=== PATIENT | male | born 1985 | race Caucasian/White ===

== ENCOUNTER 2017-07-02 11:09 | Inpatient (IN) | payer OTHER ==
[2017-07-02 11:50] LABS: Hematocrit 39 % (42-52); Hemoglobin 13.5 g/dl (14.0-18.0); Mean Corpuscular HGB Conc 35 g/dl (31-36); Mean Corpuscular Hemoglobin 29 pg (27-31); Mean Corpuscular Volume 84 fL (80-94); Mean Platelet Volume 8 um3 (7.4-10.4); Red Blood Count 4.61 10^6/ul (4.0-5.4); Red Cell Distribution Width 15 % (10.5-15); White Blood Count 3.4 10^3/ul (3.5-10.8)
[2017-07-02 11:52] LABS: Add Diff/Slide Review? Slide Review Added; Comments Flag Yes
[2017-07-02 11:54] LABS: Urine Bilirubin Negative (Negative); Urine Glucose 1+(50 mg/dL) (Negative); Urine Nitrite Negative (Negative)
[2017-07-02 12:07] LABS: ALT 45 U/L (7-52); AST 36 U/L (13-39); Albumin 4.2 g/dL (3.2-5.2); Alkaline Phosphatase 54 U/L (34-104); Anion Gap 7 mmol/L (2-11); Blood Urea Nitrogen 12 mg/dL (6-24); CO2 Carbon Dioxide 26 mmol/L (22-32); Chloride 101 mmol/L (101-111); EGFR Non-African American 112.8 (>60); Globulin 2.4 g/dL (2-4); Glucose 174 mg/dL (70-100); Potassium 3.9 mmol/L (3.5-5.0); Sodium 134 mmol/L (133-145); Total Protein 6.6 g/dL (6.4-8.9)
[2017-07-02 12:09] LABS: Benzodiazepine Urine Screen None Detected (None Detect)
[2017-07-02 12:13] LABS: Acetaminophen < 15 mcg/mL; Alcohol < 10 mg/dL (<10); Salicylate < 2.50 mg/dL (<30)
[2017-07-02 12:27] LABS: TSH (Thyroid Stimulating Horm) 9.39 mcIU/mL (0.34-5.60)
[2017-07-02] MEDS ORDERED: hydrOXYzine HCL TAB* 50 MG PO PRN (16:35)
[2017-07-02] MEDS: Buprenorphine/Naloxone 8-2 MG SL TAB* 1 TAB PO SCH (20:09)
[2017-07-02] MEDS: Naproxen TAB* 250 MG PO SCH (20:10)
[2017-07-02] MEDS ORDERED: Mirtazapine TAB* 15 MG PO SCH (21:00)
[2017-07-02] MEDS ORDERED: OLANzapine TAB* 10 MG PO SCH (21:00)
[2017-07-02] MEDS ORDERED: Nicotine PATCH 14 MG/24 HR* PATCH TRANSDERM SCH (21:00)
[2017-07-02] MEDS: buPROPion TAB* 75 MG PO SCH (21:13)
[2017-07-03] MEDS ORDERED: Nicotine Patch Removal NOTE PATCH OFF SCH (09:00)
[2017-07-03] MEDS: buPROPion TAB* 75 MG PO SCH (09:25)
[2017-07-03] MEDS: Naproxen TAB* 250 MG PO SCH ×2 (09:25→21:02)
[2017-07-03] MEDS: Buprenorphine/Naloxone 8-2 MG SL TAB* 1 TAB PO SCH (09:26)
--- NOTE | 2017-07-03 11:35 | ADMNOTE ---
Identification - Identify Employment Status: Unemployed Hx Psychiatric Hospitalization: Yes Prior Psychiatric Diagnosis: Persistent Depressive Disorder, Major Depressive Disorder recurrent Arrived to Hospital Via: transferred by ambulance from [facility] History - Objective HPI: HISTORY AND PHYSICAL Reason for Admission: Plan - Treatment Plan Medications: Current Medications Acetaminophen (Tylenol Tab*) 650 mg PO Q4H PRN PRN Reason: for pain; or Temp >101 F Buprenorphine/Naloxone (Suboxone 8-2 Mg Sl Tab*) 1.5 tab.sl PO DAILY [facility] Last Admin: 07/03/17 09:26 Dose: 1.5 tab.sl Bupropion HCl (Wellbutrin Tab*) 75 mg PO BID [facility] Last Admin: 07/03/17 09:25 Dose: 75 mg Device (Nicotine Mouth Piece*) 1 each INH .USE WITH CARTRIDGE PRN PRN Reason: CRAVINGS Hydroxyzine HCl (Atarax Tab*) 50 mg PO Q6H PRN PRN Reason: ANXIETY Mirtazapine (Remeron Tab*) 30 mg PO BEDTIME [facility] Last Admin: 07/02/17 20:11 Dose: 30 mg Naproxen (Naprosyn Tab*) 500 mg PO BID [facility] Last Admin: 07/03/17 09:25 Dose: 500 mg Nicotine (Nicotine Inhaler*) 10 mg INH Q2H PRN PRN Reason: CRAVINGS Nicotine (Nicotine Patch 14 Mg/24 Hr*) 1 patch TRANSDERM BEDTIME [facility] Last Admin: 07/02/17 20:12 Dose: 1 patch Nicotine Polacrilex (Nicotine Gum*) 2 mg PO Q2H PRN PRN Reason: CRAVINGS Olanzapine (Zyprexa Tab*) 10 mg PO BEDTIME [facility] Last Admin: 07/02/17 20:59 Dose: 10 mg Pharmacy Profile Note (Nicotine Patch Removal Note*) 1 note PATCH OFF 0900 [facility] Last Admin: 07/03/17 09:27 Dose: 1 note
[2017-07-03] MEDS: Nicotine Patch Removal NOTE PATCH OFF SCH (21:03)
[2017-07-03] MEDS: Mirtazapine TAB* 15 MG PO SCH (21:03)
[2017-07-03] MEDS: CMCS: Brexpiprazole (NF) 0.5 MG TAB PO SCH (21:22)
[2017-07-04] MEDS: Buprenorphine/Naloxone 8-2 MG SL TAB* 1 TAB PO SCH (08:13)
[2017-07-04] MEDS: Naproxen TAB* 250 MG PO SCH ×2 (08:13→20:20)
[2017-07-04] MEDS: Nicotine PATCH 14 MG/24 HR* PATCH TRANSDERM SCH (08:13)
[2017-07-04] MEDS: BuPROPion XL* 300 MG TAB.XL PO SCH (08:14)
[2017-07-04] MEDS ORDERED: BuPROPion XL* 150 MG TAB.XL PO SCH (09:00)
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
[2017-07-04] MEDS: Nicotine Inhaler* 10 MG AMP INH PRN ×3 (12:54→20:22)
[2017-07-04] MEDS: Mouth Piece, Nicotine* 1 EACH CARTRIDGE INH PRN (12:54)
[2017-07-04] MEDS: FLUoxetine CAP* 20 MG PO SCH (13:05)
[2017-07-04] MEDS: CMCS: Brexpiprazole (NF) 0.5 MG TAB PO SCH (20:18)
[2017-07-04] MEDS: Mirtazapine TAB* 15 MG PO SCH (20:20)
[2017-07-04] MEDS: Nicotine Patch Removal NOTE PATCH OFF SCH (20:21)
[2017-07-05] MEDS: Naproxen TAB* 250 MG PO SCH ×2 (08:18→20:17)
[2017-07-05] MEDS: Buprenorphine/Naloxone 8-2 MG SL TAB* 1 TAB PO SCH (08:19)
[2017-07-05] MEDS: BuPROPion XL* 300 MG TAB.XL PO SCH (08:19)
[2017-07-05] MEDS: Nicotine PATCH 14 MG/24 HR* PATCH TRANSDERM SCH (08:20)
[2017-07-05] MEDS: Nicotine Inhaler* 10 MG AMP INH PRN ×4 (08:21→20:20)
[2017-07-05] MEDS: FLUoxetine CAP* 20 MG PO SCH (08:23)
[2017-07-05] MEDS: Gabapentin CAP(*) 300 MG PO PRN ×3 (08:45→19:08)
[2017-07-05] MEDS ORDERED: Modafinil TAB* 100 MG PO SCH (09:00)
[2017-07-05] MEDS: Acetaminophen TAB* 325 MG PO PRN ×3 (12:09→21:52)
--- NOTE | 2017-07-05 13:14 | PN ---
MHU: Group Therapy Note - Service Type Service Type: [id number] Group Psychotherapy - Cognitive Behavioral Group Therapy ( CBT):Patient was attentive and participatory in CBT programming this morning, and remained in good behavioral control. Patient expressed positive insights regarding relevant treatment interventions and goals.
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
[2017-07-05] MEDS: Nicotine GUM* 2 MG PO PRN (16:33)
--- NOTE | 2017-07-05 16:37 | PN ---
MHU: Group Therapy Note - Service Type Service Type: [id number] Group Psychotherapy - Medication Education Group: Patient was attentive and participatory in group, and remained in good behavioral control. Patient expressed positive insights regarding relevant treatment interventions. Patient stated understanding of material discussed and had appropriate questions.
[2017-07-05] MEDS: CMCS: Brexpiprazole (NF) 0.5 MG TAB PO SCH (20:16)
[2017-07-05] MEDS: Mirtazapine TAB* 15 MG PO SCH (20:17)
[2017-07-05] MEDS: Nicotine Patch Removal NOTE PATCH OFF SCH (20:18)
[2017-07-05] MEDS ORDERED: Mirtazapine TAB* 15 MG PO SCH (21:00)
[2017-07-06] MEDS: Gabapentin CAP(*) 300 MG PO PRN ×4 (00:30→19:56)
[2017-07-06] MEDS: Nicotine PATCH 14 MG/24 HR* PATCH TRANSDERM SCH (08:07)
[2017-07-06] MEDS: Buprenorphine/Naloxone 8-2 MG SL TAB* 1 TAB PO SCH (08:09)
[2017-07-06] MEDS: BuPROPion XL* 300 MG TAB.XL PO SCH (08:10)
[2017-07-06] MEDS: Nicotine Inhaler* 10 MG AMP INH PRN ×4 (08:10→22:44)
[2017-07-06] MEDS: FLUoxetine CAP* 20 MG PO SCH (08:10)
[2017-07-06] MEDS: Naproxen TAB* 250 MG PO SCH ×2 (08:11→20:28)
[2017-07-06 08:20] LABS: Hematocrit 40 % (42-52); Hemoglobin 13.9 g/dl (14.0-18.0); Mean Corpuscular HGB Conc 34 g/dl (31-36); Mean Corpuscular Hemoglobin 29 pg (27-31); Mean Corpuscular Volume 86 fL (80-94); Mean Platelet Volume 8 um3 (7.4-10.4); Red Blood Count 4.72 10^6/ul (4.0-5.4); Red Cell Distribution Width 15 % (10.5-15)
[2017-07-06 08:28] LABS: Comments Flag Yes; White Blood Count 3.4 10^3/ul (3.5-10.8)
[2017-07-06 08:37] LABS: HDL Cholesterol 33.1 mg/dL
[2017-07-06 08:47] LABS: T4 5.01 mcg/mL (6.09-12.23)
[2017-07-06 09:02] LABS: Folate 19.93 ng/mL (>3.99)
--- NOTE | 2017-07-06 11:49 | PN ---
MHU: Group Therapy Note - Service Type Service Type: [id number] Group Psychotherapy - Cognitive Behavioral Group Therapy ( CBT):Patient was attentive and participatory in CBT programming this morning, and remained in good behavioral control. Patient expressed positive insights regarding relevant treatment interventions and goals.
--- NOTE | 2017-07-06 12:37 | ED ---
Luz Cedeño Thomas, scribed for Bao Fernandes MD on 07/02/17 at 1212 . Psychiatric Complaint - HPI Summary HPI Summary: The patient is a 32 y/o M with complaints of severe anxiety and depression. He denies SI. The patient does not have any other complaints at this time. He is a patient at [email or web address]. - History Of Current Complaint Chief Complaint: EDAltMentalStatus Time Seen by Provider: 07/02/17 11:16 Hx Obtained From: Patient Onset/Duration: Still Present Timing: Constant Severity Currently: Severe Character: Depressed, Anxious Aggravating Factor(s): Other - Unknown Alleviating Factor(s): Other - Unknown Has Suicidal: Denies: Thoughts PMH/Surg Hx/FS Hx/Imm Hx Previously Healthy: Yes Endocrine/Hematology History: Denies: Hx Diabetes Cardiovascular History: Denies: Hx Hypertension Infectious Disease History: No Infectious Disease History: Denies: Traveled Outside the [place] in Last 30 Days - Family History Known Family History: Negative: Hypertension, Diabetes - Social History Alcohol Use: None Hx Substance Use: No Substance Use Type: Reports: None Hx Tobacco Use: No Smoking Status (MU): Never Smoked Tobacco Review of Systems Negative: Fever Positive: Anxious, Depressed All Other Systems Reviewed And Are Negative: Yes Physical Exam - Summary Physical Exam Summary: VITAL SIGNS: Reviewed. GENERAL: Patient is a well-developed and nourished male who is lying comfortable in the stretcher. Patient is not in any acute respiratory distress. HEAD AND FACE: No signs of trauma. No ecchymosis, hematomas or skull depressions. No sinus tenderness. EYES: PERRLA, EOMI x 2, No injected conjunctiva, no nystagmus. EARS: Hearing grossly intact. Ear canals and tympanic membranes are within normal limits. MOUTH: Oropharynx within normal limits. NECK: Supple, trachea is midline, no adenopathy, no JVD, no carotid bruit, no c- spine tenderness, neck with full ROM. CHEST: Symmetric, no tenderness at palpation LUNGS: Clear to auscultation bilaterally. No wheezing or crackles. CVS: Regular rate and rhythm, S1 and S2 present, no murmurs or gallops appreciated. ABDOMEN: Soft, non-tender. No signs of distention. No rebound no guarding, and no masses palpated. Bowel sounds are normal. EXTREMITIES: FROM in all major joints, no edema, no cyanosis or clubbing. NEURO: Alert and oriented x 3. No acute neurological deficits. Speech is normal and follows commands. SKIN: Dry and warm. PSYCH: Depressed, quiet, and denies any suicidal thoughts or plan. No homicidal thoughts or plan. No signs of psychosis or pressure speech. No tangential speech. PSYCH: Depressed and quiet. He has suicidal ideation. No homicidal thoughts or plan. No signs of psychosis or pressure speech. No tangential speech. Triage Information Reviewed: Yes Vital Signs On Initial Exam: Initial Vitals Temp Pulse Resp BP Pulse Ox 98.7 F 80 16 122/65 93 07/02/17 11:53 07/02/17 11:53 07/02/17 11:53 07/02/17 11:53 07/02/17 11:53 Vital Signs Reviewed: Yes Diagnostics - Vital Signs Vital Signs Temp Pulse Resp BP Pulse Ox 07/02/17 11:53 98.7 F 80 16 122/65 93 - Laboratory Lab Results: Lab Results 07/02/17 07/02/17 07/02/17 Range/Units 11:36 11:36 11:36 WBC (3.5-10.8) 10^3/ul RBC (4.0-5.4) 10^6/ul Hgb (14.0-18.0) g/dl Hct (42-52) % MCV (80-94) fL MCH (27-31) pg MCHC (31-36) g/dl RDW (10.5-15) % Plt Count (150-450) 10^3/ul MPV (7.4-10.4) um3 Neut % (Auto) (38-83) % Lymph % (Auto) (25-47) % [place] % (Auto) (1-9) % Eos % (Auto) (0-6) % Baso % (Auto) (0-2) % Absolute Neuts (auto) (1.5-7.7) 10^3/ul Absolute Lymphs (auto) (1.0-4.8) 10^3/ul Absolute Monos (auto) (0-0.8) 10^3/ul Absolute Eos (auto) (0-0.6) 10^3/ul Absolute Basos (auto) (0-0.2) 10^3/ul Absolute Nucleated RBC 10^3/ul Nucleated RBC % Sodium 134 (133-145) mmol/L Potassium 3.9 (3.5-5.0) mmol/L Chloride 101 (101-111) mmol/L Carbon Dioxide 26 (22-32) mmol/L Anion Gap 7 (2-11) mmol/L BUN 12 (6-24) mg/dL Creatinine 0.80 (0.67-1.17) mg/dL Est GFR ( Amer) 145.0 (>60) Est GFR (Non-Af Amer) 112.8 (>60) BUN/Creatinine Ratio 15.0 (8-20) Glucose 174 H (70-100) mg/dL Calcium 9.0 (8.6-10.3) mg/dL Total Bilirubin 0.40 (0.2-1.0) mg/dL AST 36 (13-39) U/L ALT 45 (7-52) U/L Alkaline Phosphatase 54 (34-104) U/L Total Protein 6.6 (6.4-8.9) g/dL Albumin 4.2 (3.2-5.2) g/dL Globulin 2.4 (2-4) g/dL Albumin/Globulin Ratio 1.8 (1-3) TSH Pending Urine Color Yellow Urine Appearance Clear Urine pH 5.0 (5-9) Ur Specific [place] 1.020 (1.010-1.030) Urine Protein Negative (Negative) Urine Ketones Negative (Negative) Urine Blood Negative (Negative) Urine Nitrate Negative (Negative) Urine Bilirubin Negative (Negative) Urine Urobilinogen Negative (Negative) Ur Leukocyte Esterase Negative (Negative) Urine Glucose 1+(50 mg/dl) H (Negative) Salicylates Pending Urine Opiates Screen None detected (None Detect) Acetaminophen Pending Ur Barbiturates Screen None detected (None Detect) Ur Phencyclidine Scrn None detected (None Detect) Ur Amphetamines Screen None detected (None Detect) U Benzodiazepines Scrn None detected (None Detect) Urine Cocaine Screen None detected (None Detect) U Cannabinoids Screen None detected (None Detect) Serum Alcohol Pending 07/02/17 Range/Units 11:36 WBC 3.4 L (3.5-10.8) 10^3/ul RBC 4.61 (4.0-5.4) 10^6/ul Hgb 13.5 L (14.0-18.0) g/dl Hct 39 L (42-52) % MCV 84 (80-94) fL MCH 29 (27-31) pg MCHC 35 (31-36) g/dl RDW 15 (10.5-15) % Plt Count 184 (150-450) 10^3/ul MPV 8 (7.4-10.4) um3 Neut % (Auto) 51.6 (38-83) % Lymph % (Auto) 33.8 (25-47) % [place] % (Auto) 10.9 H (1-9) % Eos % (Auto) 2.4 (0-6) % Baso % (Auto) 1.3 (0-2) % Absolute Neuts (auto) 1.7 (1.5-7.7) 10^3/ul Absolute Lymphs (auto) 1.1 (1.0-4.8) 10^3/ul Absolute Monos (auto) 0.4 (0-0.8) 10^3/ul Absolute Eos (auto) 0.1 (0-0.6) 10^3/ul Absolute Basos (auto) 0 (0-0.2) 10^3/ul Absolute Nucleated RBC 0.01 10^3/ul Nucleated RBC % 0.2 Sodium (133-145) mmol/L Potassium (3.5-5.0) mmol/L Chloride (101-111) mmol/L Carbon Dioxide (22-32) mmol/L Anion Gap (2-11) mmol/L BUN (6-24) mg/dL Creatinine (0.67-1.17) mg/dL Est GFR ( Amer) (>60) Est GFR (Non-Af Amer) (>60) BUN/Creatinine Ratio (8-20) Glucose (70-100) mg/dL Calcium (8.6-10.3) mg/dL Total Bilirubin (0.2-1.0) mg/dL AST (13-39) U/L ALT (7-52) U/L Alkaline Phosphatase (34-104) U/L Total Protein (6.4-8.9) g/dL Albumin (3.2-5.2) g/dL Globulin (2-4) g/dL Albumin/Globulin Ratio (1-3) TSH Urine Color Urine Appearance Urine pH (5-9) Ur Specific [place] (1.010-1.030) Urine Protein (Negative) Urine Ketones (Negative) Urine Blood (Negative) Urine Nitrate (Negative) Urine Bilirubin (Negative) Urine Urobilinogen (Negative) Ur Leukocyte Esterase (Negative) Urine Glucose (Negative) Salicylates Urine Opiates Screen (None Detect) Acetaminophen Ur Barbiturates Screen (None Detect) Ur Phencyclidine Scrn (None Detect) Ur Amphetamines Screen (None Detect) U Benzodiazepines Scrn (None Detect) Urine Cocaine Screen (None Detect) U Cannabinoids Screen (None Detect) Serum Alcohol Result Diagrams: 07/02/17 11:36 07/02/17 11:36 Lab Statement: Any lab studies that have been ordered have been reviewed, and results considered in the medical decision making process. Course/Dx - Course Assessment/Plan: The patient is a 32 y/o M with complaints of severe anxiety and depression. He denies SI. The patient does not have any other complaints at this time. He is a patient at [email or web address]. The patient is medically cleared. He is awaiting mental health evaluation. After mental health evaluation and consultation by Dr. Weaver, the patient will be involuntarily admitted. The patient is diagnosed with mood disorder. - Differential Dx/Clinical Impression Provider Diagnosis: Mood disorder - Physician Notifications Discussed Care Of Patient With: Theo Weaver Time Discussed With Above Provider: 17:06 Instructed by Provider To: Other - Dr. Weaver, psychiatry, recommended involuntary admission. Discharge - Discharge Plan Condition: Stable Disposition: ADMITTED TO [facility] Referrals: No Primary Care Phys,NOPCP [Primary Care Provider] - The documentation as recorded by the Luz avilez Thomas accurately reflects the service I personally performed and the decisions made by me, Bao Fernandes MD.
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
[2017-07-06 15:37] LABS: Free T4 0.62 ng/dL (0.61-1.12)
[2017-07-06] MEDS: CMCS: Brexpiprazole (NF) 0.5 MG TAB PO SCH (20:27)
[2017-07-06] MEDS: Nicotine Patch Removal NOTE PATCH OFF SCH (20:28)
[2017-07-06] MEDS: traZODone TAB* 50 MG TAB PO PRN (20:30)
[2017-07-07] MEDS ORDERED: Levothyroxine TAB* 75 MCG TAB PO SCH (06:00)
[2017-07-07] MEDS: Nicotine PATCH 14 MG/24 HR* PATCH TRANSDERM SCH (07:49)
[2017-07-07] MEDS: Buprenorphine/Naloxone 8-2 MG SL TAB* 1 TAB PO SCH (07:49)
[2017-07-07] MEDS: Nicotine Inhaler* 10 MG AMP INH PRN ×7 (07:50→22:34)
[2017-07-07] MEDS: Naproxen TAB* 250 MG PO SCH ×2 (07:50→20:26)
[2017-07-07] MEDS: Gabapentin CAP(*) 300 MG PO PRN ×3 (07:50→17:51)
[2017-07-07] MEDS: FLUoxetine CAP* 20 MG PO SCH (07:53)
[2017-07-07] MEDS: BuPROPion XL* 300 MG TAB.XL PO SCH (08:49)
--- NOTE | 2017-07-07 16:54 | CONS ---
CONSULTATION REPORT: DATE OF CONSULT: 07/07/17 ATTENDING PSYCHIATRIST: Andre Alaniz DO CONSULTING PHYSICIAN: Randall Espinoza MD REASON FOR CONSULT: Elevated TSH, elevated A1C. HISTORY OF PRESENT ILLNESS: Fredy Nixon is a 32-year-old male, history of opioid dependence, usually used intranasally, but one instance of injected heroin use, recent methamphetamine use and incarceration for manufacture of methamphetamine, recently released to [facility], but was not participating in group therapy there, had a depressed affect. He was involuntarily admitted for reported suicidal ideation, though currently denies current suicidality. Medications are being adjusted by Dr. Andre Alaniz. His Vistaril was discontinued. He was started on gabapentin for anxiety. Continued on Suboxone , continued on Remeron and Wellbutrin and modafinil was added. Restarted Rexulti. The patient attest to recent significant weight gain, initially had been 220, then dropped down to 197 in the setting of his methadone use prior to his incarceration and since September of 2016, he has gained approximately 50 to 55 pounds. His labs were significant for elevated TSH 9.39, free T4 within normal limits of 0.62, and total T4 of 5.01, and Medicine was consulted for hypothyroidism. Also had a mildly elevated A1c of 5.7. The patient attested being very tired over the last couple of years, sleeping up to 14 hours a day. He has diffuse joint pains. He has had multiple surgeries for the same. Denies any muscle pains. The patient attested to frequent urinations, 5 to 6 times a day with nocturia 2 to 3 times a day. Denies any family history of thyroid or diabetes. PAST MEDICAL HISTORY: Opioid dependence, on Suboxone; depressive mood disorder , severe; history of multiple psychiatric hospitalizations and suicide attempts ; recent incarceration for substance abuse and methamphetamine manufacture. PAST SURGICAL HISTORY: Bilateral shoulder reconstructions, bilateral wrist surgeries for ganglion cyst, and ligament manipulation. CURRENT MEDICATIONS: Include: 1. Acetaminophen tab 650 mg p.o. q.4 hours. 2. Brexpiprazole 1 mg p.o. at bedtime. 3. Buprenorphine naloxone 1.5 tabs sublingual p.o. daily. 4. Bupropion 200 mg p.o. daily. 5. Fluoxetine 20 mg p.o. daily. 6. Gabapentin 300 mg p.o. q.4 hours p.r.n. 7. Levothyroxine 75 mcg p.o. daily (started this morning by Dr. Alaniz). 8. Naproxen 500 mg p.o. b.i.d. 9. Nicotine gum 2 mg p.o. q.2 hours p.r.n. 10. Nicotine inhaler 2 mg inhaled q.2 hours p.r.n. 11. Nicotine patch 14 mg daily. 12. Trazodone 50 mg p.o. at bedtime. ALLERGIES: Denies any drug allergies. SOCIAL HISTORY: Here for admitted [facility] and formerly resident of [place], [place]. No family in the area. Previously worked in the [employer] business in [place] after his drug rehabilitation, may be returning to [place], [place], although he is trying to get his case transferred elsewhere. Current smoker. Denies alcohol use. Currently on Suboxone and previous drug use as per HPI. FAMILY HISTORY: Maternal grandfather with diabetes. Father with hypertension, CAD, CABG. Mother without any medical issues. REVIEW OF SYSTEMS: A complete 14-point review of systems was negative except as per HPI. PHYSICAL EXAMINATION: General Appearance: No acute distress. Vital Signs: Temperature 98.2, heart rate 77, respiratory rate 16, O2 sat 98%, blood pressure 108/74. HEENT: Normocephalic, atraumatic. Pupils are equal, round, and reactive to light. Extraocular motions are intact. Oropharynx: Clear. Neck: No cervical lymphadenopathy. No goiter or other thyroid masses appreciated. Respiratory: Clear to auscultation bilaterally with no wheezing, rales, or rhonchi. Cardiovascular: Regular rate and rhythm. No murmurs, rubs, or gallops. Abdomen: Soft, nontender, nondistended. No peritoneal signs. No guarding, no rebound. No Guzman's sign. Extremities: Warm and well perfused. No peripheral edema. Skin: No lesions. No rashes. Mood: Stable appearing, non-pressured speech. Denies any suicidal ideation or homicidal ideation. Neurological: Cranial nerves II through XII intact. Moving all extremities. Sensation intact. DIAGNOSTIC STUDIES/LAB DATA: White count 3.4, hemoglobin 13.9, hematocrit 40, platelets 224. Hemoglobin A1c 5.7. Triglycerides 447, cholesterol 261, LDL 137 , HDL 33, TSH 9.39, free T4 0.62. Total T4 5.01. Thyroid peroxidase antibody 322. No imaging. ASSESSMENT AND PLAN: Fredy Nixon is a 32-year-old male with history of opioid abuse, major depressive disorder with reported recent suicidal ideations , not participating in drug treatment plan at [facility], presenting to the mental health unit for further psychiatric med titration. Seems to be stable from mood perspective. Hospitalist service consulted for hypothyroidism, perhaps consistent with potential mild hypothyroidism. I agree with plan to start Synthroid supplementation, although would reduce dose from 75 mcg per day to 50 mcg a day, representing 1.6 mcg/kg. Recheck in 6 weeks. No further imaging indicated at this time. Consult with Dr. Bowman as an outpatient if still in the area. For his empiric glucose tolerance, A1c of 5.7. Would given his 50 pound weight gain in the last year in the setting of incarceration and potential mild hypothyroidism, we will not start metformin or other oral agents at this time. Recommend diet and exercise with outpatient follow up with the primary care provider and repeat A1c testing in no sooner than 3 months. The patient does have frequent urination and some nocturia. Do not see the need to get q.a.c. q.h.s. blood sugars while he is in the psych unit. Does have elevated LDL, low HDL, some family history of cardiac disease on his father's side, his age, subsequently demographics calculate 10-year ASCVD risk and would not start saline at this time. I appreciate the consultation. Please call with any further questions. [id number]/[facility] #: [id number] DOMINGUEZ
[2017-07-07] MEDS: CMCS: Brexpiprazole (NF) 0.5 MG TAB PO SCH (20:25)
[2017-07-07] MEDS: Docusate CAP* 100 MG PO SCH (20:26)
[2017-07-07] MEDS: Nicotine Patch Removal NOTE PATCH OFF SCH (20:27)
[2017-07-07] MEDS: Magnesium Hydroxide LIQ* 30 ML UDC PO PRN (20:27)
[2017-07-07] MEDS: traZODone TAB* 50 MG TAB PO PRN (22:34)
[2017-07-08] MEDS: Levothyroxine TAB* 50 MCG TAB PO SCH (07:19)
[2017-07-08] MEDS: Buprenorphine/Naloxone 8-2 MG SL TAB* 1 TAB PO SCH (08:20)
[2017-07-08] MEDS: Docusate CAP* 100 MG PO SCH ×2 (08:21→20:10)
[2017-07-08] MEDS: Gabapentin CAP(*) 300 MG PO PRN ×4 (08:21→21:32)
[2017-07-08] MEDS: Naproxen TAB* 250 MG PO SCH ×2 (08:21→20:09)
[2017-07-08] MEDS: Nicotine PATCH 14 MG/24 HR* PATCH TRANSDERM SCH (08:22)
[2017-07-08] MEDS: BuPROPion XL* 300 MG TAB.XL PO SCH (08:22)
[2017-07-08] MEDS: FLUoxetine CAP* 20 MG PO SCH (08:23)
[2017-07-08] MEDS: Nicotine Inhaler* 10 MG AMP INH PRN ×6 (08:24→22:39)
[2017-07-08] MEDS: Nicotine GUM* 2 MG PO PRN (13:12)
[2017-07-08] MEDS: Magnesium Hydroxide LIQ* 30 ML UDC PO PRN (13:13)
[2017-07-08] MEDS: Acetaminophen TAB* 325 MG PO PRN (16:08)
[2017-07-08] MEDS: CMCS: Brexpiprazole (NF) 0.5 MG TAB PO SCH (20:09)
[2017-07-08] MEDS: Nicotine Patch Removal NOTE PATCH OFF SCH (21:34)
[2017-07-08] MEDS: traZODone TAB* 50 MG TAB PO PRN (22:40)
[2017-07-09] MEDS: Nicotine Inhaler* 10 MG AMP INH PRN ×7 (00:48→22:40)
[2017-07-09] MEDS: Levothyroxine TAB* 50 MCG TAB PO SCH (08:46)
[2017-07-09] MEDS: Docusate CAP* 100 MG PO SCH ×2 (08:46→20:06)
[2017-07-09] MEDS: BuPROPion XL* 300 MG TAB.XL PO SCH (08:46)
[2017-07-09] MEDS: Naproxen TAB* 250 MG PO SCH ×2 (08:46→20:04)
[2017-07-09] MEDS: Buprenorphine/Naloxone 8-2 MG SL TAB* 1 TAB PO SCH (08:46)
[2017-07-09] MEDS: FLUoxetine CAP* 20 MG PO SCH (08:48)
[2017-07-09] MEDS: Nicotine PATCH 14 MG/24 HR* PATCH TRANSDERM SCH (08:49)
[2017-07-09] MEDS: Gabapentin CAP(*) 300 MG PO PRN ×3 (08:49→20:05)
[2017-07-09] MEDS: Magnesium Hydroxide LIQ* 30 ML UDC PO PRN (12:07)
--- NOTE | 2017-07-09 12:53 | PN ---
MHU: Group Therapy Note - Service Type Service Type: 80470 Group Psychotherapy - Cognitive Behavioral Group Therapy ( CBT):Patient was attentive and participatory in CBT programming this morning, and remained in good behavioral control. Patient expressed positive insights regarding relevant treatment interventions and goals.
--- NOTE | 2017-07-09 15:20 | PN ---
Subjective - Subjective Subjective: Patient seen by Dr. Espinoza on Sunday for medical consult. He was diagnosed with borderline diabetes and hypothyroidism (likely jen's ) patient did well over weekend. mood and affect brighter and improving more initiative and motivation. energy improved. Patient his highly dependent and needy. very low self esteem, significant anxiety, limited ego strengths, difficulty making decsions on his own. perseverating about leaving here and returning to [facility] program worries that they will not accept him back. has hard time forgiving program staff. very black and white. resentful that they "didnt diagnose his medical and psychiatric problems better. little room for barrera. Tends to exaggerate his helplessness in order to be rescued. behaves considerably younger than his 32 years in this regard. Told Fredy that he was doing alot better. he had hard time trusting that. He is attending all groups and has been model patient. he utilizes groups effectively and has been kind and cooperative with staff and other patient's alike. MSE: mood brighter affect full range TP organized TC no SI,HI, psychotic symptoms speech: normal RR and V insight fair judgment: fair Labs: Laboratory Last Values WBC 3.4 10^3/ul (3.5-10.8) L 07/06/17 07:43 RBC 4.72 10^6/ul (4.0-5.4) 07/06/17 07:43 Hgb 13.9 g/dl (14.0-18.0) L 07/06/17 07:43 Hct 40 % (42-52) L 07/06/17 07:43 MCV 86 fL (80-94) 07/06/17 07:43 MCH 29 pg (27-31) 07/06/17 07:43 MCHC 34 g/dl (31-36) 07/06/17 07:43 RDW 15 % (10.5-15) 07/06/17 07:43 Plt Count 224 10^3/ul (150-450) 07/06/17 07:43 MPV 8 um3 (7.4-10.4) 07/06/17 07:43 Neut % (Auto) 48.5 % (38-83) 07/06/17 07:43 Lymph % (Auto) 41.1 % (25-47) 07/06/17 07:43 [place] % (Auto) 7.1 % (1-9) 07/06/17 07:43 Eos % (Auto) 2.6 % (0-6) 07/06/17 07:43 Baso % (Auto) 0.7 % (0-2) 07/06/17 07:43 Absolute Neuts (auto) 1.6 10^3/ul (1.5-7.7) 07/06/17 07:43 Absolute Lymphs (auto) 1.4 10^3/ul (1.0-4.8) 07/06/17 07:43 Absolute Monos (auto) 0.2 10^3/ul (0-0.8) 07/06/17 07:43 Absolute Eos (auto) 0.1 10^3/ul (0-0.6) 07/06/17 07:43 Absolute Basos (auto) 0 10^3/ul (0-0.2) 07/06/17 07:43 Absolute Nucleated RBC 0.01 10^3/ul 07/06/17 07:43 Nucleated RBC % 0.2 07/06/17 07:43 Sodium 134 mmol/L (133-145) 07/02/17 11:36 Potassium 3.9 mmol/L (3.5-5.0) 07/02/17 11:36 Chloride 101 mmol/L (101-111) 07/02/17 11:36 Carbon Dioxide 26 mmol/L (22-32) 07/02/17 11:36 Anion Gap 7 mmol/L (2-11) 07/02/17 11:36 BUN 12 mg/dL (6-24) 07/02/17 11:36 Creatinine 0.80 mg/dL (0.67-1.17) 07/02/17 11:36 Est GFR ( Amer) 145.0 (>60) 07/02/17 11:36 Est GFR (Non-Af Amer) 112.8 (>60) 07/02/17 11:36 BUN/Creatinine Ratio 15.0 (8-20) 07/02/17 11:36 Glucose 174 mg/dL (70-100) H 07/02/17 11:36 POC Glucose (mg/dL) 108 mg/dL (70-100) H 07/09/17 12:04 Hemoglobin A1c 5.7 % (4.0-5.6) H 07/06/17 07:43 Calcium 9.0 mg/dL (8.6-10.3) 07/02/17 11:36 Total Bilirubin 0.40 mg/dL (0.2-1.0) 07/02/17 11:36 AST 36 U/L (13-39) 07/02/17 11:36 ALT 45 U/L (7-52) 07/02/17 11:36 Alkaline Phosphatase 54 U/L (34-104) 07/02/17 11:36 Total Protein 6.6 g/dL (6.4-8.9) 07/02/17 11:36 Albumin 4.2 g/dL (3.2-5.2) 07/02/17 11:36 Globulin 2.4 g/dL (2-4) 07/02/17 11:36 Albumin/Globulin Ratio 1.8 (1-3) 07/02/17 11:36 Triglycerides 447 mg/dL 07/06/17 07:44 Cholesterol 261 mg/dL 07/06/17 07:44 LDL Cholesterol mg/dL 07/06/17 07:44 LDL Cholesterol Direct 137 mg/dL 07/06/17 07:44 HDL Cholesterol 33.1 mg/dL 07/06/17 07:44 Vitamin B12 368 pg/mL (180-914) 07/06/17 07:44 Folate 19.93 ng/mL (>3.99) 07/06/17 07:44 TSH 9.39 mcIU/mL (0.34-5.60) H 07/02/17 11:36 Free T4 0.62 ng/dL (0.61-1.12) 07/06/17 07:44 Thyroxine (T4) 5.01 mcg/mL (6.09-12.23) L 07/06/17 07:44 Urine Color Yellow 07/02/17 11:36 Urine Appearance Clear 07/02/17 11:36 Urine pH 5.0 (5-9) 07/02/17 11:36 Ur Specific [place] 1.020 (1.010-1.030) 07/02/17 11:36 Urine Protein Negative (Negative) 07/02/17 11:36 Urine Ketones Negative (Negative) 07/02/17 11:36 Urine Blood Negative (Negative) 07/02/17 11:36 Urine Nitrate Negative (Negative) 07/02/17 11:36 Urine Bilirubin Negative (Negative) 07/02/17 11:36 Urine Urobilinogen Negative (Negative) 07/02/17 11:36 Ur Leukocyte Esterase Negative (Negative) 07/02/17 11:36 Urine Glucose 1+(50 mg/dl) (Negative) H 07/02/17 11:36 Salicylates < 2.50 mg/dL (<30) 07/02/17 11:36 Urine Opiates Screen None detected (None Detect) 07/02/17 11:36 Acetaminophen < 15 mcg/mL 07/02/17 11:36 Ur Barbiturates Screen None detected (None Detect) 07/02/17 11:36 Ur Phencyclidine Scrn None detected (None Detect) 07/02/17 11:36 Ur Amphetamines Screen None detected (None Detect) 07/02/17 11:36 U Benzodiazepines Scrn None detected (None Detect) 07/02/17 11:36 Urine Cocaine Screen None detected (None Detect) 07/02/17 11:36 U Cannabinoids Screen None detected (None Detect) 07/02/17 11:36 Serum Alcohol < 10 mg/dL (<10) 07/02/17 11:36 Thyroglobulin Antibody <1.8 IU/mL (<4.0) 07/06/17 07:44 Thyroid Peroxidase Ab 322.54 IU/mL (<9) H 07/06/17 07:43 Impression: MDD recurrent moderate to severe PTSD polysubstance dependence in early remission Opioid dependence on agonist therapy hypothyroidism borderline Diabetes type II Plan: continue current medication regimen unchanged Assessment - Assessment Inpatient DSM-IV Dx: Persistent Depressive Disorder. Post Traumatic Stress Disorder. Personality Disorder unspecified. Opioid Dependence on agonist therapy. polysubstance abuse Clinical Impression: 32 yo with MDD, PTSD, polysubstance dependence in early remission on suboxone presented with SI, lethargy, amotivation. patient was displaying neurovegetative signs at a drug rehab program which he was court ordered to take. depression has multiple determinants including newly diagnosed diabetes, undetected clinical hypothyroidism, recurrent major depressive disorder and undiagnosed chronic PTSD. patient has made initial gains in mental status since starting him on antidepressant medications and synthroid. He has demonstrated sincere desire to stay sober, advocate on his own behalf and would like to return to complete the [facility] program. Subsequently he hopes to attend [facility] program. He feels he will require supervised living as he does not feel ready to live by himself because he fears that he will become suicidal and wants supervision nearby in the event that he feels unsafe. Plan - Plan Treatment Plan: Name: FREDY PINEDA Birthdate: 1985 [id number] add staff passes today continue Rexulti 1 mg po QHS Prozac 20 mg QHS Gabapentin 300 mg Q 4h prn anxiety continue suboxone dose unchanged continue Wellbutrin XL 300 mg QAM continue syntroid 50 mcg qd discharge plan is to return to [facility] to complete program on Sunday07/11/2017 Medications:
[2017-07-09] MEDS: Mouth Piece, Nicotine* 1 EACH CARTRIDGE INH PRN (15:37)
--- NOTE | 2017-07-09 19:47 | CONS ---
PSYCHOLOGICAL REPORT: DATE OF CONSULT: 07/09/17 REASON FOR REFERRAL: Fredy was referred for personality testing secondary to concerns regarding depression and subsequent lethality concerns as well as vulnerabilities regarding characterological issues pertaining to recurrent depression and presenting problem. TEST ADMINISTERED: Fredy completed the [place] Multiphasic Personality Inventory - II (MMPI-II). He was given feedback regarding test results in individual conversation. BEHAVIORAL OBSERVATIONS: Fredy is a 32-year-old male, who has been cooperative with all efforts to treat him to assess. He initially was seclusive to his room for the first 2 days of his hospitalization citing how he felt depressed. He responded positively to discussion regarding the importance of attending programming and subsequently has complied consistently with this request. He presents with good affect and interaction with both staff and peers in an empathic and thoughtful fashion in clinical setting, often initiating constructive discourse between himself and peers as well as taking direction from staff. He discussed benefiting particularly from both the educational components of the programming as well as medications adjustment. He also describes getting medical attention as very helpful to him. Fredy is future oriented currently describing aspirations of returning to college and completing degree in one of the sciences. He has aspirations to work in the health field. RELEVANT HISTORY: Fred[place] [facility] [place] experiencing intractable difficulties with depression while in the [facility]. He apparently had been seclusive to his room while there, which was not tolerated by staff. He currently intents on returning to the [facility] to complete programming successfully in hopes of addressing requirements from drug court from his [place], [place]. He was arrested and [facility] in [facility] [place] [facility] secondary to manufacture of methamphetamine. Fredy describes having remained awake for 15 days prior to [place] [facility] [place] to [place]. He describes experiencing auditory hallucinations and experiencing what sounds to be delirium at times, but Fredy was able to differentiate between what was real and what was not. He then subsequently describes sleeping for the first 14 days of his incarceration with staff there doing such invasive things such using smelling salts to awaken him. 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 He describes having difficulties with substance abuse and drinking and is hopeful of avoiding returning to work in the restaurant industry. Please refer to Dr. Randall Espinoza's consultation regarding significant medical findings consistent with hypothyroidism and possible type 2 diabetes. TESTING RESULTS: Fredy provides very distressed profile on this administration of the MMPI-II, having elevated the emotional duress scales on the validity indicators to very high degrees between T-score of 90 and 115. He subsequently elevates all clinical indices except the masculine-feminine and the hypomania scales. This is a profile that is commonly discussed in the "cry for help" context as Fredy has endorsed many different symptoms including high levels of psychotic range disturbance. However, as Fredy does not experience any psychosis , it should be interpreted in the context of interpersonal duress as he is endorsing items which reflect him feeling emotionally detached and even alienated from other people. Feedback regarding his results resonate with him in this regard, as he identifies as not been able to maintain nurturing relationships very well presently. He also elevates the depression and psychopathic deviate scales significantly leaving clinical impression of cluster B personality traits. Continuing treatment should rule out anti-social personality traits and/or borderline personality traits as well secondary to his recurring hospitalizations while in [place] with expressed suicide rumination. It was felt that these may be contributing factors to his difficulties with recurrent depression and should be explored in both educational and clinical context. It is hoped that Fredy will be successfully returned to the [facility], so he can complete his legal requirements. It should be noted that his medical difficulties may have played a significant role in his initial sedentary and seclusive behavior both while here as well as at [facility]. He responds positively to clinical intervention and treatments, and has complied with all recommended medications. DIAGNOSTIC IMPRESSION: Supports major depression, recurrent without psychosis and continuing treatment should also rule out presence of anti-social and/or borderline personality features. [id number]/[facility] #: [id number] DOMINGUEZ
[2017-07-09] MEDS: CMCS: Brexpiprazole (NF) 0.5 MG TAB PO SCH (20:05)
[2017-07-09] MEDS: Nicotine Patch Removal NOTE PATCH OFF SCH (20:07)
[2017-07-09] MEDS: traZODone TAB* 50 MG TAB PO PRN (22:41)
[2017-07-10] MEDS: Levothyroxine TAB* 50 MCG TAB PO SCH (07:22)
[2017-07-10] MEDS: Nicotine Inhaler* 10 MG AMP INH PRN ×7 (07:23→23:10)
[2017-07-10] MEDS: Docusate CAP* 100 MG PO SCH ×2 (09:10→20:35)
[2017-07-10] MEDS: Naproxen TAB* 250 MG PO SCH ×2 (09:10→20:34)
[2017-07-10] MEDS: BuPROPion XL* 300 MG TAB.XL PO SCH (09:10)
[2017-07-10] MEDS: Buprenorphine/Naloxone 8-2 MG SL TAB* 1 TAB SL SCH (09:13)
[2017-07-10] MEDS: FLUoxetine CAP* 20 MG PO SCH (09:13)
[2017-07-10] MEDS: Nicotine PATCH 14 MG/24 HR* PATCH TRANSDERM SCH (09:14)
[2017-07-10] MEDS: Gabapentin CAP(*) 300 MG PO PRN ×2 (13:15→19:03)
--- NOTE | 2017-07-10 13:23 | PN ---
Subjective - Subjective Service Type: 19800 Hosp care 15 min low complexity Subjective: continues to make progress. attending groups. active participant in his recovery. Helpful and respectful to staff and other patient's alike. Continues to report feeling worried that [employer] may not agree to allow him to return to complete the program. call worker person made several attempts to contact program but has connected as of yet. patient continues to express insecurity and doubt about whether he is ready for discharge. patient was given support and gains which he has made emotionally were pointed out to him. Objective - Appearance Appearance: Well Developed/Nourished Dysmorphic Features: No Hygiene: Normal - Behavior Psychomotor Activities: Normal Exhibits Abnormal Movement: No - Attitude and Relatedness Attitude and Relatedness: Cooperative Eye Contact: Good - Speech Quality: Unpressured Latencies: Normal Quantity: Appropriate - Mood Patient's Decription of Mood: "Anxious" - Affect Observed Affect: Non-labile Affect Consistent with: Euthymia - Thought Process Patient's Thought Process: Goal Directed Thought Content: No Passive Wish, No Suicidal Planning, No Homicidal Ideation, No Paranoid Ideation - Sensorium Experiencing Hallucinations: No, Sensorium is Clear Type of Hallucinations: Visual: No, Auditory: No, Command: No - Level of Consciousness Orientation: Yes Intact, Yes Orientated to Time, Yes Orientated to Place, Yes Orientated to Person - Impulse Control Impulse Control: Intact - Insight and Judgement Insight and Judgement: Good - Group Participation Particating in Group Activities: Yes - Medication Management Medication Management Adherence: Yes Assessment - Assessment Merits Inpatient Hospitalization: For Discharge Planning Inpatient DSM-IV Dx: Persistent Depressive Disorder. Post Traumatic Stress Disorder. Personality Disorder unspecified. Opioid Dependence on agonist therapy. polysubstance abuse Clinical Impression: 32 yo with MDD, PTSD, polysubstance dependence in early remission on suboxone presented with SI, lethargy, amotivation. patient was displaying neurovegetative signs at a drug rehab program which he was court ordered to take. depression has multiple determinants including newly diagnosed diabetes, undetected clinical hypothyroidism, recurrent major depressive disorder and undiagnosed chronic PTSD. patient has made initial gains in mental status since starting him on antidepressant medications and synthroid. He has demonstrated sincere desire to stay sober, advocate on his own behalf and would like to return to complete the [facility]. Subsequently he hopes to attend [facility]. He feels he will require supervised living as he does not feel ready to live by himself because he fears that he will become suicidal and wants supervision nearby in the event that he feels unsafe. patient is discharge ready and will be transferred back to [facility] assuming they accept him back. Plan - Plan Treatment Plan: Name: KIMANI PINEDA Birthdate: 1985 [id number] continue Rexulti 1 mg po QHS Prozac 20 mg QHS Gabapentin 300 mg Q 4h prn anxiety continue suboxone dose unchanged continue Wellbutrin XL 300 mg QAM continue syntroid 50 mcg qd discharge plan is to return to [facility] to complete program on Sunday07/11/2017 Medications: Current Medications Acetaminophen (Tylenol Tab*) 650 mg PO Q4H PRN PRN Reason: for pain; or Temp >101 F Last Admin: 07/08/17 16:08 Dose: 650 mg Brexpiprazole (Rexulti 0.5 Mg Tab (Nf)) 1 mg PO BEDTIME [facility] Last Admin: 07/09/17 20:05 Dose: 1 mg Buprenorphine/Naloxone (Suboxone 8-2 Mg Sl Tab*) 1.5 tab.sl SL DAILY [facility] Last Admin: 07/10/17 09:13 Dose: 1.5 tab.sl Bupropion HCl (Bupropion Xl*) 300 mg PO DAILY [facility] Last Admin: 07/10/17 09:10 Dose: 300 mg Device (Nicotine Mouth Piece*) 1 each INH .USE WITH CARTRIDGE PRN PRN Reason: CRAVINGS Last Admin: 07/09/17 15:37 Dose: 1 each Docusate Sodium (Colace Cap*) 100 mg PO BID [facility] Last Admin: 07/10/17 09:10 Dose: 100 mg Fluoxetine HCl (Prozac Cap*) 20 mg PO DAILY@09 [facility] Last Admin: 07/10/17 09:13 Dose: 20 mg Gabapentin (Neurontin Cap(*)) 300 mg PO Q4H PRN PRN Reason: ANXIETY Last Admin: 07/10/17 13:15 Dose: 300 mg Levothyroxine Sodium (Synthroid Tab*) 50 mcg PO DAILY@0600 [facility] Last Admin: 07/10/17 07:22 Dose: 50 mcg Magnesium Hydroxide (Milk Of Magnesia Liq*) 30 ml PO DAILY PRN PRN Reason: CONSTIPATION Last Admin: 07/09/17 12:07 Dose: 30 ml Naproxen (Naprosyn Tab*) 500 mg PO BID [facility] Last Admin: 07/10/17 09:10 Dose: 500 mg Nicotine (Nicotine Inhaler*) 10 mg INH Q2H PRN PRN Reason: CRAVINGS Last Admin: 07/10/17 12:29 Dose: 10 mg Nicotine (Nicotine Patch 14 Mg/24 Hr*) 1 patch TRANSDERM 0900 [facility] Last Admin: 07/10/17 09:14 Dose: 1 patch Nicotine Polacrilex (Nicotine Gum*) 2 mg PO Q2H PRN PRN Reason: CRAVINGS Last Admin: 07/08/17 13:12 Dose: 2 mg Pharmacy Profile Note (Nicotine Patch Removal Note*) 1 note PATCH OFF 2100 [facility] Last Admin: 07/09/17 20:07 Dose: 1 note Trazodone HCl (Desyrel Tab*) 50 mg PO BEDTIME PRN PRN Reason: INSOMNIA Last Admin: 07/09/17 22:41 Dose: 50 mg - Discharge Plan Discharge Plan: Drug/Alcohol Rehab - [facility]
[2017-07-10] MEDS: CMCS: Brexpiprazole (NF) 0.5 MG TAB PO SCH (20:33)
[2017-07-10] MEDS: Nicotine Patch Removal NOTE PATCH OFF SCH (20:37)
[2017-07-10] MEDS: traZODone TAB* 50 MG TAB PO PRN (22:19)
[2017-07-11] MEDS: Levothyroxine TAB* 50 MCG TAB PO SCH (06:10)
[2017-07-11] MEDS: Buprenorphine/Naloxone 8-2 MG SL TAB* 1 TAB SL SCH (08:14)
[2017-07-11] MEDS: Docusate CAP* 100 MG PO SCH (08:15)
[2017-07-11] MEDS: BuPROPion XL* 300 MG TAB.XL PO SCH (08:15)
[2017-07-11] MEDS: Naproxen TAB* 250 MG PO SCH (08:15)
[2017-07-11] MEDS: FLUoxetine CAP* 20 MG PO SCH (08:16)
[2017-07-11] MEDS: Gabapentin CAP(*) 300 MG PO PRN ×2 (08:16→12:55)
[2017-07-11] MEDS: Nicotine Inhaler* 10 MG AMP INH PRN ×2 (08:17→12:14)
[2017-07-11 08:31] VITALS: BP 104/66
[2017-07-11] MEDS: Nicotine PATCH 14 MG/24 HR* PATCH TRANSDERM SCH (09:23)
== END 2017-07-11 13:30 | DRG 754 ==
LOC: ED 11:09 → BSU 20:33
PROVIDERS: ADMIT Psychiatry & Neurology Psychiatry; ATTEND Psychiatry & Neurology Psychiatry
DX: F34.1 Dysthymic disorder (principal); E11.9 Type 2 diabetes mellitus without complications; R45.851 Suicidal ideations; F43.10 Post-traumatic stress disorder, unspecified; F60.9 Personality disorder, unspecified; F19.21 Other psychoactive substance dependence, in remission; E03.8 Other specified hypothyroidism; F17.210 Nicotine dependence, cigarettes, uncomplicated; Z83.3 Family history of diabetes mellitus; Z82.49 Family history of ischemic heart disease and other diseases of the circulatory system; Z79.1 Long term (current) use of non-steroidal anti-inflammatories (NSAID); Z79.899 Other long term (current) drug therapy
CPT/HCPCS: 36415; 80053; 80061; 80307; 80320; 80329; 81003; 81291; 82607; 82746; 83036; 83721; 84436; 84439; 84443; 85025; 86376; 86800; 90853; 96102; 99222; 99231; A9270-GY; G0480

== ENCOUNTER 2019-02-13 05:23 | Emergency (ER) | payer SELFPAY ==
--- NOTE | 2019-02-13 05:39 | ED ---
Psychiatric Complaint - HPI Summary HPI Summary: Pt. is a 33 y.o male who presents to the ER requesting a MHE. Pt. notes he has a hx of anxiety and depression. He has been admitted to the [facility] in the past. Pt. has a hx of drug use and states he last used meth this past week. He states today he was having thoughts that he wished he were and called the suicide prevention hotline. Pt. denies any suicide attempts. Pt. states he wants to get help for his family. Sxs are moderate in severity. No current modifying factors. Pt. states he is rx psychiatric medications but stopped taking them a few months ago. - History Of Current Complaint Chief Complaint: EDSuicidal Time Seen by Provider: 02/13/19 05:38 Hx Obtained From: Patient - Allergies/Home Medications Allergies/Adverse Reactions: Allergies Allergy/AdvReac Type Severity Reaction Status Date / Time No Known Allergies Allergy Verified 07/02/17 21:54 PMH/Surg Hx/FS Hx/Imm Hx Previously Healthy: Yes Endocrine/Hematology History: Denies: Hx Diabetes Cardiovascular History: Denies: Hx Hypertension Musculoskeletal History: Reports: Other Musculoskeletal History - Patient reports " I believe I have arthritis." Denies: Hx Arthritis - However, patient reports that he believes he has arthritis Sensory History: Reports: Hx Contacts or Glasses - Patient left his contact lens at [facility] has contact lens in. Denies: Hx Hearing Aid Opthamlomology History: Reports: Hx Contacts or Glasses - Patient left his contact lens at [facility] has contact lens in. Psychiatric History: Reports: Hx Depression, Hx Inpatient Treatment - Multiple, Hx Substance Abuse Denies: Hx Eating Disorder, Hx of Violent Episodes Against Others - Surgical History Surgery Procedure, Year, and Place: Surgery on bilateral arms d/t a dislocation Infectious Disease History: No Infectious Disease History: Denies: Traveled Outside the [place] in Last 30 Days - Family History Known Family History: Negative: Hypertension, Diabetes - Social History Occupation: Unemployed Lives: With Family Alcohol Use: None Hx Substance Use: No Substance Use Type: Reports: None Substance Use Comment - Amount & Last Used: Patient denies currently . In drug rehab. Hx Tobacco Use: No Smoking Status (MU): Never Smoked Tobacco Type: Cigarettes Amount Used/How Often: Patient inconsistent with his smoking hx describes as minimally or heavy Have You Smoked in the Last Year: Yes - Patient has smoked cigarette within the ast 30 days. Review of Systems Cardiovascular: Negative Respiratory: Negative Gastrointestinal: Negative Neurological: Negative Positive: Depressed All Other Systems Reviewed And Are Negative: Yes Physical Exam Triage Information Reviewed: Yes Vital Signs On Initial Exam: Initial Vitals Temp Pulse Resp BP Pulse Ox 97.1 F 96 20 133/92 97 02/13/19 05:24 02/13/19 05:24 02/13/19 05:24 02/13/19 05:24 02/13/19 05:24 Vital Signs Reviewed: Yes Appearance: Positive: Well-Appearing - Pt. lying in bed in NAD. Tearful at times. Cooperative. Skin: Positive: Warm, Dry Head/Face: Positive: Normal Head/Face Inspection Eyes: Positive: Normal, EOMI Neck: Positive: Supple Neurological: Positive: Normal, CN Intact II-III Psychiatric: Positive: Depressed Diagnostics - Vital Signs Vital Signs Temp Pulse Resp BP Pulse Ox 02/13/19 05:24 97.1 F 96 20 133/92 97 - Laboratory Result Diagrams: 02/13/19 05:55 02/13/19 05:55 Lab Statement: Any lab studies that have been ordered have been reviewed, and results considered in the medical decision making process. Course/Dx - Course Course Of Treatment: Pt. presenting with SI without plan. Pt. medically cleared. Pending MHE. Pt. examined by therapist and psychiatrist consulted. Dr. Weaver can be safely discharge. Pt. reported as a warrant for arrest and was taken by from ED to [facility]. - Differential Dx/Clinical Impression Differential Diagnosis/HQI/PQRI: Positive: Alcohol Intoxication, Anxiety, Depression, Suicidal Ideation Provider Diagnosis: Drug use, Depression Discharge - Sign-Out/Discharge Documenting (check all that apply): Patient Departure Patient Received Moderate/Deep Sedation with Procedure: No - Discharge Plan Condition: Good Disposition: LAW ENFORCEMENT/COURT Patient Education Materials: Mood Disorders (ED), Depression (ED) Referrals: No Primary Care Phys,NOPCP [Medical Doctor] - - Billing Disposition and Condition Condition: GOOD Disposition: Law Enforcement/Court
[2019-02-13 05:46] LABS: Urine Appearance Cloudy; Urine Bilirubin Negative (Negative); Urine Blood Negative (Negative); Urine Color Yellow; Urine Glucose Negative (Negative); Urine Ketones Negative (Negative); Urine Nitrite Negative (Negative); Urine Protein Negative (Negative); Urine Urobilinogen Negative (Negative)
[2019-02-13 06:05] LABS: ABS Lymphocytes 1.1 10^3/ul (1.0-4.8); ABS Monocytes 0.3 10^3/ul (0-0.8); ABS Neutrophils 2.7 10^3/ul (1.5-7.7); Eosinophil % 0.8 %; Hematocrit 45 % (42-52); Hemoglobin 15.5 g/dL (14.0-18.0); Lymphocyte % 27.3 %; Mean Corpuscular HGB Conc 35 g/dL (31-36); Mean Corpuscular Hemoglobin 29 pg (27-31); Mean Corpuscular Volume 84 fL (80-94); Mean Platelet Volume 7.5 fL (7.4-10.4); Nucleated Red Blood Cells % 0.7; Platelet Count 247 10^3/uL (150-450); Red Blood Count 5.34 10^6 /uL (4.18-5.48); Red Cell Distribution Width 14 % (10-15); White Blood Count 4.2 10^3/uL (3.5-10.8)
[2019-02-13 06:06] LABS: Urine Benzodiazepine Screen None Detected (None Detect); Urine Opiates Screen None Detected (None Detect)
[2019-02-13 06:25] LABS: ALT 27 U/L (7-52); AST 15 U/L (13-39); Albumin 4.1 g/dL (3.2-5.2); Albumin/Globulin Ratio 1.4 (1-3); Alkaline Phosphatase 55 U/L (34-104); Anion Gap 4 mmol/L (2-11); BUN/Creatinine Ratio 16.7 (8-20); Blood Urea Nitrogen 13 mg/dL (6-24); CO2 Carbon Dioxide 31 mmol/L (22-32); Calcium 9.7 mg/dL (8.6-10.3); Chloride 104 mmol/L (101-111); EGFR African American 139.6 (>60); EGFR Non-African American 115.4 (>60); Globulin 2.9 g/dL (2-4); Glucose 147 mg/dL (70-100); Potassium 3.8 mmol/L (3.5-5.0); Sodium 139 mmol/L (135-145)
[2019-02-13 06:50] LABS: Acetaminophen < 15 mcg/mL; Alcohol < 10 mg/dL (<10); Salicylate < 2.50 mg/dL (<30)
[2019-02-13 07:02] LABS: TSH (Thyroid Stimulating Horm) 4.75 mcIU/mL (0.34-5.60)
[2019-02-13 08:47] VITALS: BP 115/65
[2019-02-13 10:02] LABS: HIV 4th Generation Negative (Negative)
[2019-02-14 13:03] LABS: Neisseria gonorrhoeae (GC) RNA Negative (Negative)
== END 2019-02-13 10:32 ==
LOC: ED 05:23
DX: F19.90 Other psychoactive substance use, unspecified, uncomplicated (principal); F32.9 Major depressive disorder, single episode, unspecified; F41.9 Anxiety disorder, unspecified; R45.851 Suicidal ideations
CPT/HCPCS: 36415; 80053; 80307; 80320; 80329; 81003; 84443; 85025; 87389; 87491; 87591; 99285; G0480

== ENCOUNTER 2020-09-02 09:33 | Inpatient (IN) ==
[2020-09-02] MEDS ORDERED: NS 0.9% 1000 ml BAG 1,000 ML IV ONE (09:49)
[2020-09-02 10:47] LABS: ABS Basophils 0.1 10^3/ul (0-0.2); ABS Eosinophils 0.1 10^3/ul (0-0.6); ABS Lymphocytes 1.5 10^3/ul (1.0-4.8); ABS Monocytes 0.4 10^3/ul (0-0.8); ABS Neutrophils 5.6 10^3/ul (1.5-7.7); Eosinophil % 1.7 %; Hematocrit 42 % (42-52); Hemoglobin 14.2 g/dL (14.0-18.0); Mean Corpuscular HGB Conc 34 g/dL (31-36); Mean Corpuscular Hemoglobin 29 pg (27-31); Mean Corpuscular Volume 86 fL (80-94); Mean Platelet Volume 7.6 fL (7.4-10.4); Platelet Count 263 10^3/uL (150-450); Red Blood Count 4.85 10^6 /uL (4.18-5.48); Red Cell Distribution Width 14 % (10-15); White Blood Count 7.7 10^3/uL (3.5-10.8)
[2020-09-02 11:03] LABS: Acetaminophen < 15 mcg/mL; Alcohol, S < 10 mg/dL (<10); Salicylate < 2.50 mg/dL (<30)
[2020-09-02 11:12] LABS: ALT 20 U/L (7-52); AST 21 U/L (13-39); Albumin 4.6 g/dL (3.2-5.2); Albumin/Globulin Ratio 1.5 (1-3); Alkaline Phosphatase 65 U/L (34-104); Anion Gap 7 mmol/L (2-11); Blood Urea Nitrogen 18 mg/dL (6-24); CO2 Carbon Dioxide 28 mmol/L (22-32); Calcium 10.1 mg/dL (8.6-10.3); Chloride 103 mmol/L (101-111); Creatine Kinase 203 U/L (10-223); EGFR African American 151.2 (>60); Globulin 3.1 g/dL (2-4); Glucose 59 mg/dL (70-100); Lipase 24 U/L (11.0-82.0); Potassium 3.7 mmol/L (3.5-5.0); Sodium 138 mmol/L (135-145); Total Protein 7.7 g/dL (6.4-8.9)
[2020-09-02] MEDS ORDERED: Iohexol 300 (CONTRAST) 10 ML SDV IV ONE (11:15)
[2020-09-02 13:50] LABS: Urine Benzodiazepine Screen None Detected (None Detect); Urine Cannabinoids Screen None Detected (None Detect); Urine Opiates Screen None Detected (None Detect)
[2020-09-02 15:02] LABS: Urine Appearance Cloudy; Urine Bilirubin Negative (Negative); Urine Blood Negative (Negative); Urine Color Yellow; Urine Glucose Negative (Negative); Urine Ketones Negative (Negative); Urine Nitrite Negative (Negative); Urine Protein Negative (Negative); Urine Specific Gravity 1.012 (1.010-1.030); Urine Urobilinogen Negative (Negative)
[2020-09-02] MEDS ORDERED: Al Hydrox/Mg Hydrox/Simet LIQ 30 ML UDC PO PRN (22:45)
[2020-09-02] MEDS ORDERED: Polyethylene Glycol 3350 17 GM PACKET PO PRN (22:55)
[2020-09-03] MEDS ORDERED: Fluticasone NASAL SPRAY 50MCG 16 gm SPRAY BTL BOTH NARES SCH (09:00)
[2020-09-03] MEDS: Vitamin THERAPEUTIC TAB PO SCH (09:40)
[2020-09-03] MEDS ORDERED: Mupirocin 2% OINT TUBE TOPICAL SCH (10:30)
[2020-09-03] MEDS ORDERED: Buprenorp/Nalox 8-2 MG FILM SL FILM SCH (11:00)
[2020-09-03] MEDS ORDERED: Fluticasone NASAL SPRAY 50MCG 16 gm SPRAY BTL INTRANASAL SCH (11:00)
[2020-09-03 14:32] LABS: Free T4 0.92 ng/dL (0.61-1.12)
[2020-09-03 14:47] LABS: Total T3 122 ng/dL (87-178)
[2020-09-03 20:52] LABS: Urine Benzodiazepine Screen None Detected (None Detect); Urine Buprenorphine Screen Presumptive Positive (None Detect); Urine Cannabinoids Screen None Detected (None Detect); Urine Fentanyl Screen None Detected (None Detect); Urine Hydrocodone Screen None Detected (None Detect); Urine Opiates Screen None Detected (None Detect)
[2020-09-04 08:10] LABS: HDL Cholesterol 44.4 mg/dL
[2020-09-04] MEDS: Polyethylene Glycol 3350 17 GM PACKET PO PRN (09:20)
[2020-09-04] MEDS: Vitamin THERAPEUTIC TAB PO SCH (09:20)
[2020-09-04] MEDS: Mupirocin 2% OINT TUBE TOPICAL PRN (09:33)
[2020-09-05] MEDS: Polyethylene Glycol 3350 17 GM PACKET PO PRN (08:15)
[2020-09-05] MEDS: Vitamin THERAPEUTIC TAB PO SCH (08:16)
[2020-09-05] MEDS: Mupirocin 2% OINT TUBE TOPICAL PRN (08:18)
[2020-09-06] MEDS: Vitamin THERAPEUTIC TAB PO SCH (08:18)
[2020-09-06] MEDS: Polyethylene Glycol 3350 17 GM PACKET PO PRN (08:19)
[2020-09-06] MEDS: Mupirocin 2% OINT TUBE TOPICAL PRN (21:43)
[2020-09-07] MEDS: Vitamin THERAPEUTIC TAB PO SCH (07:53)
[2020-09-07] MEDS: Mupirocin 2% OINT TUBE TOPICAL PRN (07:53)
[2020-09-07] MEDS: Polyethylene Glycol 3350 17 GM PACKET PO PRN (07:53)
[2020-09-08] MEDS: Vitamin THERAPEUTIC TAB PO SCH (07:54)
[2020-09-08] MEDS: Polyethylene Glycol 3350 17 GM PACKET PO PRN (08:13)
[2020-09-08] MEDS ORDERED: RISPERIDONE CONSTA 25 MG IM ONE (10:32)
[2020-09-08 22:51] VITALS: BP 104/45
[2020-09-09] MEDS: Vitamin THERAPEUTIC TAB PO SCH (06:39)
== END 2020-09-09 07:30 | disposition home or self-care (01) | DRG 751 ==
LOC: ED 09:33 → BSU 20:47
PROVIDERS: ADMIT Psychiatry & Neurology Psychiatry; ATTEND Psychiatry & Neurology Psychiatry